=== PATIENT | male | born 1980 | race Caucasian/White ===

== ENCOUNTER 2025-03-28 12:54 | Observation (INO) | payer SELFPAY ==
[~2025-03-28] VITALS: Ht 177.8 cm; Wt 115.4 kg
[2025-03-28] VITALS (11 sets, daily range): BP systolic 154–200; BP diastolic 81–116
[2025-03-28 13:43] LABS: BASO # 0.0 10*3/uL (0.0-0.1); BASO % 0.3 % (0.0-1.0); EOS # 0.1 10*3/uL (0.0-0.4); EOS % 1.6 % (1.0-4.0); MEAN CELL VOLUME 83.5 fl (80.0-94.0); MEAN CORPUSCULAR HGB 29.9 pg (27.0-31.0); MEAN PLATELET VOLUME 12.4 fl (9.6-12.3); MONO # 0.5 10*3/uL (0.1-1.0); MONO % 5.9 % (3.0-9.0); NEUT # 6.2 10*3/uL (2.3-7.9); NEUT % 69.9 % (47.0-73.0); NUCLEATED RED BLOOD CELL 0.0 % (0.0-0.0); NUCLEATED RED BLOOD CELL 0.0 10*3/uL (0.0-0.0); PLATELET COUNT AUTOMATED 247 10*3/uL (130-400); RED CELL DISTRI WIDTH 13.7 % (0-14.5)
[2025-03-28 14:15] LABS: ACT PARTIAL THROMBO TIME 30.8 SECONDS (20.0-32.1)
[2025-03-28] MEDS ORDERED: hydrALAZINE hydrochloride 20 MG/ML VIAL IV ONE (14:40)
[2025-03-28 15:59] LABS: BUN 7 mg/dl (9-23)
[2025-03-28] MEDS ORDERED: Labetalol Hydrochloride 20 MG/4 ML SYR IV ONE ×2 (16:10→17:55)
[2025-03-28] MEDS ORDERED: Ondansetron Hydrochloride 4 MG/2 ML VIAL IV PRN (17:35)
[2025-03-28] MEDS ORDERED: ACETAMINOPHEN 650 MG SUPP R PRN (17:35)
[2025-03-28] MEDS ORDERED: BISACODYL 10 MG SUPP R PRN (17:35)
[2025-03-28] MEDS ORDERED: BISACODYL 5 MG TAB PO PRN (17:35)
[2025-03-28] MEDS ORDERED: ACETAMINOPHEN 325 MG TAB PO PRN (17:35)
[2025-03-28] MEDS ORDERED: Acetaminophen/Hydrocodone 5 MG/325 MG TABLET PO PRN (17:35)
[2025-03-28] MEDS ORDERED: LISINOPRIL 10 MG TAB PO SCH (21:00)
[2025-03-28] MEDS ORDERED: LISINOPRIL 10 MG TAB PO ONE (21:15)
[2025-03-29 00:19] VITALS: BP 161/94
[2025-03-29 02:19] VITALS: BP 128/66
[2025-03-29 04:03] LABS: BASO # 0.0 10*3/uL (0.0-0.1); BASO % 0.4 % (0.0-1.0); EOS # 0.2 10*3/uL (0.0-0.4); EOS % 2.0 % (1.0-4.0); MEAN CELL VOLUME 84.4 fl (80.0-94.0); MEAN CORPUSCULAR HGB 29.3 pg (27.0-31.0); MEAN PLATELET VOLUME 11.2 fl (9.6-12.3); MONO # 0.8 10*3/uL (0.1-1.0); MONO % 8.4 % (3.0-9.0); NEUT # 6.0 10*3/uL (2.3-7.9); NEUT % 65.1 % (47.0-73.0); NUCLEATED RED BLOOD CELL 0.0 % (0.0-0.0); NUCLEATED RED BLOOD CELL 0.0 10*3/uL (0.0-0.0); PLATELET COUNT AUTOMATED 202 10*3/uL (130-400); RED CELL DISTRI WIDTH 14.0 % (0-14.5)
[2025-03-29 04:28] LABS: BUN 8 mg/dl (9-23); FREE T4 1.13 ng/dl (0.89-1.76); SGPT/ALT 54 U/L (5-49)
[2025-03-29] MEDS ORDERED: Regadenoson 0.4 MG/5 ML SYR IV ONE (06:34)
[2025-03-29] MEDS ORDERED: POTASSIUM CHLORIDE 20 MEQ TAB PO ONE ×2 (07:15→12:00)
[2025-03-29 07:48] LABS: VITAMIN D, 25-HYDROXY 21.7 ng/mL (30-100)
[2025-03-29] MEDS ORDERED: ATORVASTATIN CALCIUM 80 MG TAB PO SCH (10:00)
[2025-03-29] MEDS ORDERED: LISINOPRIL 10 MG TAB PO SCH (10:00)
[2025-03-29] MEDS ORDERED: ASPIRIN ENTERIC COATED 81 MG TAB PO SCH (10:00)
[2025-03-29] MEDS ORDERED: FENOFIBRATE 145 MG TAB PO SCH (10:00)
[2025-03-29 11:34] VITALS: BP 151/95
[2025-03-29 14:25] VITALS: BP 148/83
[2025-03-29 15:15] VITALS: BP 148/90
[2025-03-29] MEDS ORDERED: SODIUM CHLORIDE 0.9% 100 ML BAG IV ONE (15:40)
[2025-03-29] MEDS ORDERED: SODIUM CHLORIDE 0.9% 1,000 ML IV ONE (15:40)
[2025-03-29] MEDS ORDERED: IOHEXOL 350 MG/ML 100 ML VIAL IV ONE (15:40)
[2025-03-29 20:00] VITALS: BP 141/66
[2025-03-30] VITALS: BP 158/82
[2025-03-30 06:14] LABS: BASO # 0.0 10*3/uL (0.0-0.1); BASO % 0.3 % (0.0-1.0); EOS # 0.2 10*3/uL (0.0-0.4); EOS % 2.5 % (1.0-4.0); MEAN CELL VOLUME 86.2 fl (80.0-94.0); MEAN CORPUSCULAR HGB 29.6 pg (27.0-31.0); MEAN PLATELET VOLUME 11.6 fl (9.6-12.3); MONO # 0.8 10*3/uL (0.1-1.0); MONO % 8.3 % (3.0-9.0); NEUT # 6.1 10*3/uL (2.3-7.9); NEUT % 65.5 % (47.0-73.0); NUCLEATED RED BLOOD CELL 0.0 % (0.0-0.0); NUCLEATED RED BLOOD CELL 0.0 10*3/uL (0.0-0.0); PLATELET COUNT AUTOMATED 210 10*3/uL (130-400); RED CELL DISTRI WIDTH 14.3 % (0-14.5)
[2025-03-30 06:22] LABS: BUN 8 mg/dl (9-23); SGPT/ALT 49 U/L (5-49)
[2025-03-30 08:00] VITALS: BP 172/95
[2025-03-30 08:22] VITALS: BP 172/95
[2025-03-30 08:50] VITALS: BP 170/92
[2025-03-30] MEDS ORDERED: Cholecalciferol 2,000 UNIT TABLET (50 MCG) PO SCH (10:00)
[2025-03-30] MEDS ORDERED: LISINOPRIL 40 MG TAB PO SCH (10:00)
[2025-03-30] MEDS ORDERED: EMPAGLIFLOZIN 10 MG TABLET PO SCH (10:15)
[2025-03-30] MEDS ORDERED: LOPRESSOR25 MG PO (10:54)
[2025-03-30] MEDS ORDERED: LISINOPRIL40 MG PO (10:54)
[2025-03-30] MEDS ORDERED: VITAMIN D350 MCG PO (10:54)
[2025-03-30] MEDS ORDERED: FENOFIBRATE145 M1 PO (10:54)
[2025-03-30] MEDS ORDERED: ASPIRIN ADULT L81 M2 PO (10:54)
[2025-03-30] MEDS ORDERED: ATORVASTATIN CA80 M1 PO (10:54)
== END 2025-03-30 11:30 | disposition home or self-care (01) ==
LOC: ED 12:54 → EDHOLD 16:19 → 5E 03-29 14:49
PROVIDERS: Internal Medicine; Student in an Organized Health Care Education/Training Program; ADMIT Internal Medicine; ATTEND Internal Medicine
DX: I16.1 Hypertensive emergency (principal); G44.1 Vascular headache, not elsewhere classified; R07.89 Other chest pain; R73.9 Hyperglycemia, unspecified; D75.1 Secondary polycythemia; Z79.899 Other long term (current) drug therapy; Z98.890 Other specified postprocedural states